=== PATIENT | female | born 1945 ===

== ENCOUNTER 2022-07-02 10:51 | Outpatient (CLI) | payer OTHER ==
[~2022-07-02 10:51] MED LIST: CEFADROXIL500 MG PO; ULTRACET PO
== END 2022-07-02 11:02 | disposition home or self-care (01) ==
LOC: SONOGRAMA 10:51
PROVIDERS: ATTEND Pathology Anatomic Pathology & Clinical Pathology
DX: E04.2 Nontoxic multinodular goiter (principal)

== ENCOUNTER 2025-07-30 09:20 | Outpatient (CLI) | payer OTHER | END 2025-07-30 09:22 | disposition home or self-care (01) | LOC: SONOGRAMA 09:20 | PROVIDERS: ATTEND Pathology Anatomic Pathology | DX: D44.0 Neoplasm of uncertain behavior of thyroid gland (principal); D34 Benign neoplasm of thyroid gland; E07.89 Other specified disorders of thyroid; E04.2 Nontoxic multinodular goiter ==